=== PATIENT | female | born 1980 | race Caucasian/White ===

== ENCOUNTER 2016-05-10 13:06 | Emergency (ER) | payer MEDICAID ==
[~2016-05-10] VITALS: Ht 157.5 cm; Wt 60.0 kg
[2016-05-10 13:13] VITALS: Ht 157.5 cm; Wt 60.0 kg
[2016-05-10] MEDS ORDERED: BACTDS PO (13:48)
[2016-05-10] MEDS ORDERED: ACET1TAB40 PO (13:48)
[2016-05-10] MEDS ORDERED: CEPH-443 PO (13:48)
[2016-05-10] MEDS ORDERED: NEOM28OI TP (13:48)
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
[2016-05-10] MEDS ORDERED: CEFTRIAXONE 1 GM INJ IM ONE (14:00)
[2016-05-10] MEDS ORDERED: DIPHTH/TET/ACEL PERTUSS (ADULT) 0.5 ML VIAL IM* ONE (14:00)
[2016-05-10] MEDS ORDERED: LIDOCAINE 1% (MDV) 20 ML INJ SC ONE (14:00)
== END 2016-05-10 14:18 | disposition home or self-care (01) ==
LOC: FTE 13:06
DX: T22.232A Burn of second degree of left upper arm, initial encounter (principal); X10.2XXA Contact with fats and cooking oils, initial encounter; Y92.9 Unspecified place or not applicable; Z23 Encounter for immunization
CPT/HCPCS: 90471; 90715; 96372; J0696; Z7502; Z7610